=== PATIENT | female | born 1980 | race Caucasian/White ===

== ENCOUNTER → 2017-06-01 | Outpatient (CLI) | payer OTHER | END | disposition home or self-care (01) | LOC: KCIC MAMMO 07:55 | DX: N63.21 Unspecified lump in the left breast, upper outer quadrant (principal) | CPT/HCPCS: 76641; 77066 ==

== ENCOUNTER → 2018-01-02 | Outpatient (CLI) | payer OTHER ==
--- NOTE | 2018-01-02 17:41 | KCIC ---
Left breast ultrasound: Reason for examination: Follow-up nodules. Comparison is made to previous study dated 06/01/2017. Left whole breast ultrasound including evaluation of all 4 quadrants and the retroareolar and axillary regions of the left breast was performed. There continues to be a 6.7 mm hypoechoic lesion consistent with a fibroadenoma at the 2:00 position 7 cm from the nipple which is unchanged. There is a 8.9 mm hypoechoic lesion with a biopsy clip at the 3:00 position 8 cm from the nipple corresponding to the biopsy-proven fibroadenoma. There is a hypoechoic lesion measuring 1.3 cm in greatest dimension at the 5:00 position 9 cm from the nipple consistent with fibroadenoma and showing no significant change. The nodule at the 7:00 position has been resected. No other new solid or suspicious lesions are seen. No abnormal appearing lymph nodes are seen in the left axilla. 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 No suspicious lesion seen. Recommend routine mammographic follow-up. BI-RADS Category 3: Probably Benign. "Our facility is accredited by the [employer] Mammography Program." This patient's information has been entered into a reminder system for the patient to be notified with the results of her examination and a target date for the next mammogram. Electronically signed by: Anne Cedillo MD (01/02/2018 5:38 PM) [id number]
== END | disposition home or self-care (01) ==
LOC: KCIC US 08:54
PROVIDERS: ATTEND Nurse Practitioner Family
DX: D24.2 Benign neoplasm of left breast (principal); N63.23 Unspecified lump in the left breast, lower outer quadrant
CPT/HCPCS: 76641